=== PATIENT | female | born 1950 | race Caucasian/White ===

== ENCOUNTER → 2016-10-26 | Outpatient (CLI) | payer OTHER, MEDICARE ==
[~2016-10-26] MED LIST: LEVOTHYROXINE 0.1 MG; LISINOPRIL20 MG; XANAX 0.25 MG0.25 MG PO
== END ==
LOC: MRI 12:20
DX: M19.012 Primary osteoarthritis, left shoulder (principal); M75.102 Unspecified rotator cuff tear or rupture of left shoulder, not specified as traumatic; M25.412 Effusion, left shoulder

== ENCOUNTER 2019-10-20 07:52 | Day surgery (SDC) | payer OTHER, MEDICARE ==
[~2019-10-20] VITALS: Ht 160 cm; Wt 67.1 kg
--- NOTE | ~2019-10-20 | O ---
[facility] [place] [address] OPERATIVE REPORT Name: IMANI DAVIES Room #: DEP [facility] M..#: [id number] Admission: 10/20/19 Attend Phys: Erasmo Sanchez MD Discharge: 10/20/19 Date of : 46 Report #: [id number] THIS REPORT FOR: cc: Low Childers MD, Stanley P. MD Chu,Erasmo Lutz MD ~ CC: Swapna Childers DATE OF SERVICE: 10/20/2019 PREOPERATIVE DIAGNOSIS: Right inguinal hernia. POSTOPERATIVE DIAGNOSES: Right inguinal hernia, umbilical hernia, right upper thigh skin tag. PROCEDURES PERFORMED: Laparoscopic repair of right inguinal hernia with mesh, repair of umbilical hernia with small Ventralex patch, excision of skin tag right thigh. ANESTHESIA: General. SURGEON: Erasmo Sanchez M.D. COMPLICATIONS: None. ESTIMATED BLOOD LOSS: 5 mL. PROCEDURE NOTE: With the patient under general anesthesia, abdomen was prepped and draped in sterile fashion. The umbilical area was examined and had an asymmetrical appearance and when I felt the belly button, it felt like there was a hernia there. We will proceed with repair of the hernia since there is an incision made by the umbilicus. Timeout was performed. Incision was made adjacent to the umbilicus on the right side, carried slightly underneath the umbilicus in a curvilinear manner. After the subcutaneous tissue was dissected, anterior fascia was identified on the right side. A 0.25% Marcaine was used to anesthetize the skin and subcutaneous tissue. The fascia was opened transversely. The muscle was spread longitudinally and the posterior fascia was then identified. Space between the muscle and the posterior fascia was dissected free with my finger. A balloon trocar was then placed through the space in the properitoneal space. Balloon was inflated. CO2 was placed. A scope was then placed. Under visualization, a second 5 mm trocar was placed about 2 inches below the umbilicus. This was placed into the properitoneal space. The properitoneal space was then opened up. Dissection was carried out [address] [address] OPERATIVE REPORT Name: ARMANDOGODWINIMANI Hermila Room #: DEP [facility] M.R.#: [id number] Admission: 10/20/19 Attend Phys: Erasmo Sanchez MD Discharge: 10/20/19 Date of : 46 Report #: [id number] of the properitoneal space without difficulty. The pubic bone was identified. The inferior epigastric vessel was identified. The patient had an indirect hernia sac that was seen. A second 5 mm trocar was placed slightly left of the midline about an inch and a half below the first one. Dissection was then carried out freeing the hernia sac. The entire hernia sac was reduced. Moderate size hernia sac. Slight dilated internal ring was identified. On the bottom of the hernia sac, the round ligament was identified. This was adhesed to the hernia sac. I went ahead and divided the round ligament. Clips were placed proximally and distally and then the round ligament was divided with cautery. A large 3DMax lightweight mesh was then placed in the properitoneal space. The mesh was opened up. The mesh was then tacked laterally, superolaterally with SorbaFix, inferomedially with SorbaFix to the Hernandez's ligament, superomedially to the rectus muscle. They covered the internal ring well. CO2 was evacuated. Trocars were removed. The incision underneath the umbilicus was extended. The dissection was carried out towards lifting the umbilicus. The fascia is very markedly attenuated making a bulge. The thin fascia was then trimmed. First, it was dissected from the umbilical skin and then trimmed at the edge where it becomes weak. A small Ventralex patch was inserted. The fascia was closed over the Ventralex patch with 2-0 Prolene horizontal mattress fashion. Irrigation was performed. The skin of the umbilicus was sewn to the fascia with 4-0 PDS. Skin was closed with 5-0 PDS. Laparoscopic trocar site was also closed with 5-0 PDS. Steri-Strips, Band-Aids placed over the 5 mm trocar, 4 x 4 and Op-Site was used for dressing on the umbilical incision. The right thigh skin tag was included in the field. This was then anesthetized. The bottom of the skin tag was lifted. The bottom was cauterized. No bleeding identified. Band-Aid was placed over this site. The patient was awakened and taken to recovery room. Her Marr catheter was to be removed. By: [id number] Erasmo Sanchez MD /terri
--- NOTE | ~2019-10-20 | H ---
[facility] [place] [address] HISTORY AND PHYSICAL Name: IMANI DAVIES Room #: 150-2 [facility] M.R.#: [id number] Admission: 10/20/19 Attend Phys: Erasmo Sanchez MD Discharge: Date of : 46 Report #: [id number] THIS REPORT FOR: cc: Low Childers MD, Stanley P. MD Chu, Peter Y. MD ~ CC: Swapna Childers MD DATE OF SERVICE: 10/20/2019 PREOPERATIVE DIAGNOSIS: Right inguinal hernia. HISTORY OF PRESENT ILLNESS: The patient is a 69-year-old who noticed an inguinal hernia recently. The patient was toweling off after showering and noticed the protrusion. The patient recently has been doing more lifting after her . No history of nausea or vomiting. The patient does not have any straining with bowel movement or urination. Some mild chronic sneezing from seasonal allergy. The patient does complain of discomfort in the right groin. The patient was confirmed to have a right inguinal hernia. She is here for repair. PAST MEDICAL HISTORY: The patient has mild high blood pressure and type 2 diabetes. Arthritis. No heart disease, no lung disease, no liver disease, no kidney disease, no bleeding disorder, no history of blood clot. MEDICATIONS: The patient takes Synthroid 100 mcg at bedtime, gabapentin 300 mg 3 times a day, Zoloft 50 mg once a day, propranolol 60 mg, hydroxychloroquine 200 daily, metformin 500 daily, ibuprofen. ALLERGIES: SHE IS ALLERGIC TO IV CONTRAST. PAST SURGICAL HISTORY: Appendectomy, tonsillectomy, thyroid surgery, tubal ligation. FAMILY HISTORY: There is dementia, breast cancer that runs in the family. Both parents had mild heart attacks. SOCIAL HISTORY: The patient is currently retired. Does not smoke or drink. REVIEW OF SYSTEMS: She has some issues with her hearing and some feeling of skipped beats. Right-sided sciatic nerve. Essential tremor. PHYSICAL EXAMINATION: [facility] [address] [place] [address] HISTORY AND PHYSICAL Name: IMANI DAVIES Room #: [address] [place] [address] M.R.#: [id number] Admission: 10/20/19 Attend Phys: Erasmo Sanchez MD Discharge: Date of : 46 Report #: [id number] GENERAL: The patient is a thin female. She is not in acute distress. She is alert. HEENT: Pupils react to light. Extraocular muscles are intact. NECK: Soft and supple, no masses and no JVD. LUNGS: Clear to auscultation. HEART: Regular rate and rhythm. No murmur or gallop. ABDOMEN: Soft, nondistended, nontender. No mass, no ascites. The patient does have a reducible right inguinal hernia. No hernia on the left side. EXTREMITIES: No cyanosis, clubbing or edema. NEUROLOGIC: Motor and sensory exams normal. IMPRESSION: The patient is [id number] with right-sided inguinal hernia, which was recently identified. This is reducible. The patient is recommended to have this repaired. The patient is here for surgery. Laparoscopic repair is discussed and she wished to proceed. Risk of bleeding, infection, mesh infection and hernia recurrence was discussed. The patient wished to proceed. The patient will receive preoperative IV antibiotic. By: [id number] Erasmo Sanchez MD /nt
[~2019-10-20 07:52] MED LIST changes: +IBUPROFEN 200200 M1 PO; +INDERAL LA60 MG PO; +LATANOPROST 0.2.5 ML OPHTHALMIC; +MELATONIN1 M2 PO; +METFORMIN HCL500 M3 PO; +NEURONTIN 300M300 M2 PO; +NICORETTE2 MG BUCCAL; +PLAQUENIL200 MG PO; +SERTRALINE HCL25 M1 PO; +SYNTHROID100 MC1 PO
[2019-10-20 09:19] VITALS: BP 109/57
--- NOTE | 2019-10-20 09:49 | EKG ---
[facility] [place] [address] ELECTROCARDIOGRAM REPORT Name: IMANI DAVIES Room #: [address] [place] [address] M.R.#: [id number] Admission: 10/20/19 Attend Phys: Erasmo Sanchez MD Discharge: Date of : 46 Report #: [id number] THIS REPORT FOR: cc: Low Childers MD, Stanley P. MD Lammoglia, Francisco J. MD ~ THIS REPORT FOR: //name// [facility] Test Date: 2019-10-20 Test Time: 08:27:57 Pat Name: IMANI DAVIES Department: Room: [facility] 2 Gender: F Technical Trainer: ANGELICA : 1950 Requested By: Swapna Thomas Order Number: [id number] MD: Samuel Ramirez Measurements Intervals [place] Rate: 65 P: 23 NH: 186 QRS: -35 QRSD: 93 T: 48 QT: 434 QTc: 452 Interpretive Statements Sinus rhythm Left axis deviation Early transition Baseline wander in lead(s) II No previous ECG available for comparison Electronically Signed On 10-20-2019 9:49:37 CDT by Samuel Ramirez [email or web address] <ELECTRONICALLY SIGNED> By: Samuel Ramirez MD 10/20/1951 6 6 Samuel Ramirez MD /EPI
[2019-10-20] MEDS ORDERED: LORCET 5-325 M1 EACH PO (12:33)
[2019-10-20 12:52] VITALS: BP 109/57
== END 2019-10-20 14:00 | disposition home or self-care (01) ==
LOC: TBA 07:52 → OR 07:52 → TBA 07:53 → OR 10:44
PROVIDERS: ATTEND Surgery
DX: K40.90 Unilateral inguinal hernia, without obstruction or gangrene, not specified as recurrent (principal); K42.9 Umbilical hernia without obstruction or gangrene; L91.8 Other hypertrophic disorders of the skin; I10 Essential (primary) hypertension; E11.9 Type 2 diabetes mellitus without complications; M19.90 Unspecified osteoarthritis, unspecified site; Z98.890 Other specified postprocedural states; Z79.899 Other long term (current) drug therapy; Z20.828 Contact with and (suspected) exposure to other viral communicable diseases; Z90.49 Acquired absence of other specified parts of digestive tract; Z91.041 Radiographic dye allergy status
CPT/HCPCS: 50010; 50101; 50119; 50411; 50455; 50507; 50555; 50848; 52265; 53065; 53307; 55245; 56525; 56526; 62110; 62900; 70005